=== PATIENT | female | born 1980 | race Caucasian/White ===

== ENCOUNTER 2019-12-02 11:40 | Emergency (ER) | payer SELFPAY ==
--- NOTE | 2019-12-02 13:33 | RAD REPORT ---
EXAM DESCRIPTION: RAD - Forearm Right - 12/02/2019 1:27 pm CLINICAL HISTORY: PAIN COMPARISON: No comparisons FINDINGS: No bone or joint abnormality is detected.
--- NOTE | 2019-12-02 13:54 | EDPHYS ---
Physician Documentation [facility] Name: Marla Delgado Age: 39 yrs Sex: Female : 1980 Arrival Date: 12/02/2019 Time: 11:42 Bed 15 Private MD: ED Physician Mohsen Barr HPI: 12/01 13:51 This 39 yrs old Female presents to ER via Ambulatory with complaints of ma2 Numbness Of Arm. 13:51 The patient or guardian complains of pain, that is acute. Onset: The symptoms/episode ma2 began/occurred gradually, 2 day(s) ago. Associated signs and symptoms: Pertinent negatives: erythema, numbness, tingling, warmth. Severity of symptoms: At their worst the symptoms were mild, in the emergency department the symptoms are unchanged. The patient has not experienced similar symptoms in the past. CLAIMS REPRESENTATIVE: 11:58 LMP 11/26/2019 jl7 Historical: - Allergies: 11:58 No Known Allergies; jl7 - Home Meds: 11:58 None [Active]; jl7 - PMHx: 11:58 None; jl7 - PSHx: 11:58 None; jl7 - Immunization history:: Adult Immunizations up to date. - Social history:: Smoking status: Patient denies any tobacco usage or history of. Patient/guardian denies using alcohol, street drugs, The patient lives with family, . - Family history:: not pertinent. ROS: 13:51 Constitutional: Negative for fever, chills, and weight loss. ma2 13:51 All other systems are negative. Exam: 13:51 Constitutional: This is a well developed, well nourished patient who is awake, alert, ma2 and in no acute distress. Cardiovascular: Regular rate and rhythm with a normal S1 and S2. No gallops, murmurs, or rubs. Normal PMI, no JVD. No pulse deficits. Respiratory: Lungs have equal breath sounds bilaterally, clear to auscultation and percussion. No rales, rhonchi or wheezes noted. No increased work of breathing, no retractions or nasal flaring. Abdomen/GI: Soft, non-tender, with normal bowel sounds. No distension or tympany. No guarding or rebound. No evidence of tenderness throughout. Back: No spinal tenderness. No costovertebral tenderness. Full range of motion. Skin: Warm, dry with normal turgor. Normal color with no rashes, no lesions, and no evidence of cellulitis. MS/ Extremity: Pulses equal, no cyanosis. Neurovascular intact. Full, normal range of motion. Neuro: Awake and alert, GCS 15, oriented to person, place, time, and situation. Cranial nerves II-XII grossly intact. Motor strength 5/5 in all extremities. Sensory grossly intact. Cerebellar exam normal. Normal gait. Vital Signs: 11:54 BP 101 / 72; Pulse 65; Resp 16 S; Temp 97.1(O); Pulse Ox 100% on R/A; Weight 68.04 kg jl7 (R); Pain 0/10; MDM: 12:49 Patient medically screened. ma2 13:51 Differential diagnosis: dislocation, closed fracture, contusion, abrasion, tendonitis. ma2 Data reviewed: vital signs, nurses notes. Counseling: I had a detailed discussion with the patient and/or guardian regarding: the historical points, exam findings, and any diagnostic results supporting the discharge/admit diagnosis, the presence of at least one elevated blood pressure reading (>120/80) during this emergency department visit, the need for outpatient follow up. Response to treatment: she does not want pain rx. 12/01 13:08 Order name: Forearm Right XRAY; Complete Time: 13:49 ma2 12/01 13:08 Order name: Sling; Complete Time: 14:03 ma2 Administered Medications: No medications were administered Disposition: 12/02/19 13:53 Discharged to Home. Impression: Muscle spasm. - Condition is Stable. - Discharge Instructions: Muscle Pain, Adult. - Medication Reconciliation Form, Thank You Letter, Antibiotic Education, Prescription Opioid Use form. - Follow up: Private Physician; When: Tomorrow; Reason: Continuance of care. Signatures: Dispatcher [employer] EDDeisy Landrum RN RN jl7 Mohsen Barr MD MD ma2 Lucille Vega RN RN ll1 Corrections: (The following items were deleted from the chart) 14:10 13:53 12/02/2019 13:53 Discharged to Home. Impression: Muscle spasm. Condition is ll1 Stable. Forms are Medication Reconciliation Form, Thank You Letter, Antibiotic Education, Prescription Opioid Use. Follow up: Private Physician; When: Tomorrow; Reason: Continuance of care. ma2
--- NOTE | 2019-12-02 13:54 | ER ---
Nurse's Notes [facility] Name: Marla Delgado Age: 39 yrs Sex: Female : 1980 Arrival Date: 12/02/2019 Time: 11:42 Bed 15 Private MD: Diagnosis: Muscle spasm Presentation: 12/01 11:54 Chief complaint: Patient states: Right forearm numbness x 5 days; states "When I jl7 stretch my arm out all the way it shoots a sharp pain all the way to right bicep." Denies trauma, Denies any other symptoms. Coronavirus screen: Patient denies fever greater than 100.4F, cough, shortness of breath, or difficulty breathing. Proceed with normal triage process. Ebola Screen: No symptoms or risks identified at this time. Initial Sepsis Screen: Does the patient meet any 2 criteria? No. Patient's initial sepsis screen is negative. Does the patient have a suspected source of infection? No. Patient's initial sepsis screen is negative. Risk Assessment: Do you want to hurt yourself or someone else? Patient reports no desire to harm self or others. Onset of symptoms was November 27, 2019. 11:54 Method Of Arrival: Ambulatory 7 11:54 Acuity: ZACHERY 4 jl7 Triage Assessment: 11:58 General: Appears in no apparent distress. uncomfortable, Behavior is calm, cooperative, jl7 appropriate for age. Pain: Denies pain. TECHNICAL ACCOUNT REPRESENTATIVE: 11:58 LMP 11/26/2019 jl7 Historical: - Allergies: 11:58 No Known Allergies; jl7 - Home Meds: 11:58 None [Active]; jl7 - PMHx: 11:58 None; jl7 - PSHx: 11:58 None; jl7 - Immunization history:: Adult Immunizations up to date. - Social history:: Smoking status: Patient denies any tobacco usage or history of. Patient/guardian denies using alcohol, street drugs, The patient lives with family, . - Family history:: not pertinent. Screenin:06 Abuse screen: Denies threats or abuse. Nutritional screening: No deficits noted. ll1 Tuberculosis screening: No symptoms or risk factors identified. Fall Risk None identified. Total Rubio Fall Scale indicates No Risk (0-24 pts). Assessment: 14:04 General: Appears in no apparent distress. Behavior is calm, cooperative. Pain: Denies ll1 pain. Neuro: No deficits noted. Cardiovascular: No deficits noted. Respiratory: No deficits noted. Musculoskeletal: Circulation, motion, and sensation intact. Capillary refill < 3 seconds, Range of motion: intact in all extremities, Reports pain in right forearm. Vital Signs: 11:54 BP 101 / 72; Pulse 65; Resp 16 S; Temp 97.1(O); Pulse Ox 100% on R/A; Weight 68.04 kg jl7 (R); Pain 0/10; ED Course: 11:42 Patient arrived in ED. am2 11:52 Mohsen Barr MD is Attending Physician. ma2 11:57 Triage completed. jl7 11:58 Arm band placed on right wrist. jl7 11:59 Patient placed in waiting room, in view of staff members, Patient notified of wait time.jl7 13:07 Lucille Vega, RN is Primary Nurse. ll1 13:27 X-ray completed. Portable x-ray completed in exam room. Patient tolerated procedure jb2 well. 13:27 Forearm Right XRAY In Process Unspecified. EDMS 14:07 Patient has correct armband on for positive identification. Bed in low position. Call ll1 light in reach. 14:09 No provider procedures requiring assistance completed. Patient did not have IV access ll1 during this emergency room visit. Administered Medications: No medications were administered Outcome: 13:53 Discharge ordered by . ma2 14:08 Discharged to home ambulatory. ll1 14:08 Condition: stable 14:08 Discharge instructions given to patient, Instructed on discharge instructions, follow up and referral plans. Demonstrated understanding of instructions, follow-up care, splint care. 14:10 Patient left the ED. ll1 Signatures: Dispatcher [employer] EDNJ Joe Witt jb2 Deisy Gatica RN RN jl7 Rain Villagran am2 Mohsen Barr MD MD ma2 Lewis, Lynsay, ANNALISA RN ll1
[2019-12-02 14:16] VITALS: BP 101/72; TEMP 97.1; O2SAT 100
== END 2019-12-02 14:10 | disposition home or self-care (01) ==
LOC: ER 11:40
DX: M62.838 Other muscle spasm (principal)
CPT/HCPCS: 99283